=== PATIENT | female | born 1930 | race Caucasian/White ===

== ENCOUNTER 2016-09-20 08:45 | Inpatient (IN) | payer MEDICARE, OTHER ==
[~2016-09-20] VITALS: Ht 162.6 cm; Wt 62.2 kg
[~2016-09-20 08:45] MED LIST: ARICEPT10 MG PO; BENAZEPRIL HCL10 MG PO; HYDROCHLOROTHIA25 MG PO; K-TAB10 MEQ PO; LASIX20 MG PO; LOFIBRA134 MG PO; LOTREL 5/20 MG1 CAP PO; NAPROSYN500 MG PO; NORVASC5 MG PO; OCUVITE TABLET1 TA1 PO; OS-CAL 500+D TA1 TAB PO; PROTONIX40 MG PO; SEROQUEL25 MG PO; SYNTHROID100 MCG PO; TENORMIN25 MG PO; TENORMIN50 MG PO; ULTRAM50 MG PO; VITAMIN B-121000 MCG PO; VITAMIN D3400 UNI1 PO
[2016-09-20 09:50] LABS: APPEARANCE CLEAR (CLEAR); BILIRUBIN NEGATIVE (NEGATIVE); COLOR YELLOW (YELLOW); GLUCOSE NEGATIVE (NEGATIVE); KETONE NEGATIVE (NEGATIVE); LEUKOCYTE ESTERASE NEGATIVE (NEGATIVE); NITRITE NEGATIVE (NEGATIVE); PROTEIN NEGATIVE (NEGATIVE); UROBILINOGEN NORMAL (NORMAL)
[2016-09-20 09:51] LABS: ALBUMIN 3.3 g/dL (3.4-5.0); ANION GAP 7.4 mmol/L (8-16); BILIRUBIN - TOTAL 0.6 mg/dL (0.2-1.3); CALCIUM 9.4 mg/dL (8.5-10.1); CARBON DIOXIDE 30.9 mmol/L (21.0-32.0); POTASSIUM - SERUM 4.3 mmol/L (3.5-5.1); PROTEIN - SERUM 7.2 g/dL (6.4-8.2)
[2016-09-20 09:53] LABS: INR 1.05 (0.85-1.17); PROTIME 13.6 SECONDS (11.6-15.0)
[2016-09-20 10:19] LABS: BASOPHILS 0.2 % (0.0-2.0); EOSINOPHILS 0.9 % (0-7); HEMATOCRIT 38.7 % (36.0-48.0); HEMOGLOBIN 12.5 g/dL (12-16); IMMATURE GRANULOCYTES 0.5 % (0-5); MCH 33.7 pg (26.0-34.0); MCHC 32.3 g/dL (31.0-37.0); MCV 104.3 fL (80.0-100.0); MEAN PLATELET VOLUME 10.9 fL (7.4-10.4); MONOCYTES 6.6 % (2-11); NEUTROPHILS 71.8 % (40-80); PLATELET COUNT 158 10x3/uL (130-400); RBC 3.71 10x6/uL (4.00-5.40); RDW 12.7 % (11.5-14.5); WBC 5.8 10x3/uL (4.8-10.8)
--- NOTE | 2016-09-20 14:18 | NUR ---
PATIENT HAS BEENUP IN [facility] WITH PT. REHAB HAS ACCEPTED PATIENT. ORDER TO DC CVL. CVL DRESSING OFF AND SITE CLEANED WITH BETADINE. SUTURES X 3 REMOVED. CVL CATH PULLED WITH TIP INTACT. NO SIGNS OF INFECTION. PRESSURE HELD FOR 5 MINS. NO BLEEDING OR EDEMA. REPORT CALLED TO Kareem SOTELO RN.
[2016-09-20] MEDS ORDERED: CATAPRES0.1 MG PO (15:18)
[2016-09-20] MEDS ORDERED: FENOFIBRATE134 MG PO (15:19)
[2016-09-20] MEDS ORDERED: COLACE100 MG PO (15:19)
[2016-09-20] MEDS ORDERED: CENTRUM COMPLE1 EACH PO (15:20)
[2016-09-20] MEDS ORDERED: CLARITIN 10 MG10 MG PO (15:21)
[2016-09-20 15:23] VITALS: BP 175/77; BMI 23.9
[2016-09-20 15:25] VITALS: BP 175/77
--- NOTE | 2016-09-20 15:47 | NUR ---
ARRIVED FROM ER VIA STRETCHER. AWAKE BUT NOT ORIENTED TO PLACE. DAUGHTER @ BEDSIDE. PATIENT IDENIFIED FALL RISK.
--- NOTE | 2016-09-20 16:39 | NUR ---
Rehab Note- Prescreen order received. There is no H&P or notes noted at this time. Will follow the patient. Thank you for this referral! Elisha Enriquez RN Clinical Liaison, Rehab Care/[place]
--- NOTE | 2016-09-20 18:22 | NUR ---
RESUMED CARE OF PT, DAUGHTER AT BEDSIDE, BED ALARM ON, IV-LFA-SL,BED IS LOW, SRX2, WILL CONTINUE TO MONITOR
[2016-09-20 22:54] VITALS: BP 164/70
[2016-09-21 00:30] VITALS: BP 163/69
--- NOTE | 2016-09-21 01:31 | NUR ---
LYING IN BED, CALL LIGHT IN REACH. WILL CONTINUE WITH PLAN OF CARE.
[2016-09-21 05:23] VITALS: BP 180/77
[2016-09-21 08:00] VITALS: BP 203/94
--- NOTE | 2016-09-21 10:02 | NUR ---
Rehab Note- Awaiting PT note. Continue to follow the patient at this time. Thank you for this referral! Elisha Enriquez RN Clinical Liaison, Rehab Care/[place]
--- NOTE | 2016-09-21 11:33 | NUR ---
WOUND CARE CONSULT: NOTED BLANCHABLE REDNESS BILATERAL BUTTOCKS. LEFT LOWER ABD FOLD IS RED BUT DOESN'T APPEAR MOIST. NOTED CALLOUSES ON BILATERAL BALLS OF FEET. PT IS INCONTINENT OF BOWELS AND BLADDER SO RECOMMEND USING A MOISTURE BARRIER TO AIDE IN PROTECTING THE SKIN FROM MOISTURE. WILL CONTINUE TO MONITOR.
[2016-09-21 12:00] VITALS: BP 217/98
--- NOTE | 2016-09-21 13:30 | NUR ---
FOUND SALINE LOCK IN BED WITH PT. WILL LEAVE IV OUT, PT IS NOT ON IV MEDS.
[2016-09-21 14:06] VITALS: Ht 162.6 cm; Wt 62.2 kg
--- NOTE | 2016-09-21 15:10 | NUR ---
BP122/61 IN RT ARM. SITTING IN CHAIR WITH FAMILY IN THE ROOM. ALERT AND CONFUSED TO TIME AND PLACE.
[2016-09-21 16:00] VITALS: BP 85/40
--- NOTE | 2016-09-21 17:16 | NUR ---
Patient Name: JANETTE DE LA VEGA Admission Status: ER Accout number: [id number] Admission Date: 09-20-2016 : 1930 Admission Diagnosis: Attending: NARCISA Current LOS: 1 Anticipated DC Date: 09-21-2016 Planned Disposition: Nursing Home Facility Primary Insurance: MEDICARE A & B Discharge Planning Comments: * Is the patient Alert and Oriented? Yes 0 * How many steps to enter\exit or inside your home? 3 0 * PCP DR. CARPENTER 0 * [facility] [place] 0 * Preadmission Environment Home with Family 0 * ADLs Partial Dependent 0 * Partial ADLs (Assistance needed) Bathing Medication Management 0 * Equipment Cane Walker 0 * Other Equipment NO MEDICAL EQUIPMENT PROVIDER PREFERENCE 0 * List name and contact numbers for known caregivers / representatives who currently or will assist patient after discharge: HERMAN DE LA VEGA, DAUGHTER, 0 * Community resources currently utilized None 0 * Please name any agencies selected above. NONE 0 * Additional services required to return to the preadmission environment? Yes * Can the patient safely return to the preadmission environment? No 0 * Has this patient been hospitalized within the prior 30 days at any hospital? No 0 CM MET WITH PT IN ROOM TO DISCUSS DISCHARGE PLANNING AND NEEDS. PT REPORTS LIVING AT HOME DEPENDENT ON HER ADULT DAUGHTER. PT REPORTS HAVING HELP WITH BATHING AND MEDICATION MANAGEMENT. PT HAS A CANE AND WALKER WITH NO PROVIDER PREFERENCE. PT REPORTS HAVING A GIRL THAT COMES IN TO ASSIST SOMETIMES THAT HER DAUGHTER GETS TO HELP PT AT HOME. CM DISCUSSED AVAILABILITY OF HOME HEALTH, REHAB SERVICES AND MEDICAL EQUIPMENT. PT KNOWS SHE NEEDS REHAB, DOES NOT KNOW WHERE HER DAUGHTER HERMAN IS TRYING TO GET HER INTO FOR REHAB. PT PLANS TO RETURN HOME AFTER REHAB, CM CALLED HERMAN DE LA VEGA, AND [phone], THERE WAS NO ANSWER, CM LEFT MESSAGE ASKING FOR RETURN CALL. HERMAN DE LA VEGA ARRIVED TO HOSPITAL, PROVIDED POA PAPERWORK, COPY PLACED ON CHART. HERMAN REPORTS THAT HER MOTHER LIVES WITH HER AND SHE IS NOT ABLE TO TAKE CARE OF HER ANY LONGER AND WANTS TO PLACE HER MOTHER AT [facility]. HERMAN HAS ALREADY MET WITH TAMMY AT [place] AND THEY ARE EXPECTING A REFERRAL FROM THE HOSPITAL. CHOICE SIGNED, IMPORTANT MESSAGE FROM MEDICARE PROVIDED AND EXPLAINED. CM CALLED TAMMY AT [facility], , WHO ASKED IF PT COULD STAY IN THE HOSPITAL FOR 3 MIDNIGHT STAY TO ALLOW FOR REHAB SERVICES. CM ADVISED THAT PT IS READY FOR DISCHARGE NOW. TAMMY WILL EVALUATE PT FOR PLACEMENT AT [facility], BED STATUS TO BE DETERMINED. CAMRYN FAXED REFERRAL TO [place] AT [phone]. CAMRYN WAITING ADMISSION DETERMINATION FROM [facility]. Manager Of Finance: Truogn Mehta
[2016-09-21 21:18] VITALS: BP 133/87
[2016-09-22 01:12] VITALS: BP 142/76
[2016-09-22 05:01] VITALS: BP 141/58
--- NOTE | 2016-09-22 07:35 | NUR ---
0720-PATIENT IS RESTING WITH EYES CLOSED, RESP APPEAR EVEN AND NON LABORED. BOX ALARM IS IN USE. NO IV ACCESS IS SEEN. ON ROOM AIR. ON HEART MONITOR SHOWING SR, HR 52. WILL CONTINUE TO MONITOR.
[2016-09-22 08:00] VITALS: BP 166/68
[2016-09-22 12:00] VITALS: BP 123/47
--- NOTE | 2016-09-22 14:10 | NUR ---
Patient Name: JANETTE DE LA VEGA Encounter No: [id number] : 1930 Primary Insurance: MEDICARE A & B Anticipated DC Date: 09-21-2016 Planned Disposition: Assisted Facility External Planned Provider: [facility], MEDICARE REHAB BED DCP follow-up note: CM RECEIVED CALL FROM TAMMY AT [facility], ; TAMMY HAS EVALUATED PT FOR PENITENTIARY CARE PLACEMENT AT [facility], PT HAS TOO MANY ASSETS FOR MEDICAID AT THIS TIME. TAMMY WILL SCREEN PT FOR ADMISSION TO REHAB SERVICES, REQUESTED CLINICAL UPDATE. CM REQEUSTED TO HAVE PT ADMITTED OVER WEEKEND, TOMORROW IF POSSIBLE. TAMMY WILL COMPLETE SCREENING AND NOTIFY CM. CM FAXED UPDATE TO [facility] AT [phone]. CM WAITING ADMISSION DETERMINATION FROM [facility]. Monumental Stonemason: Truong Mehta
--- NOTE | 2016-09-22 14:13 | NUR ---
Nutrition follow-up: Diet: Mechanical soft PO intake ~25% of meals +BM Labs reviewed RDN will order Ensure with meals. Following.
--- NOTE | 2016-09-22 15:31 | NUR ---
Reviewed patient's chart for IRF. She certainly has the need for therapy, but does not have a medical necessity that requires a 24/7 RN and an MD at least 3 times a week. Discussed with the CM Shellie Platt who says she is going to [facility]. Gila Dent RN Clinical Liaison, Rehab
[2016-09-22 16:00] VITALS: BP 146/75
--- NOTE | 2016-09-22 16:13 | NUR ---
Patient Name: JANETTE DE LA VEGA Encounter No: [id number] : 1930 Primary Insurance: MEDICARE A & B Anticipated DC Date: 09-23-2016 Planned Disposition: Shelter Facility External Planned Provider: [facility], MEDICARE REHAB BED DCP follow-up note: CM CALLED TAMMY AT [facility], ; TAMMY HAS COMPLETED SCREENING FOR ADMISSION TO REHAB, THEY WILL ACCEPT PT TOMORROW. CM SPOKE TO PT'S DAUGHTER AND SON AT [facility], BOTH IN AGREEMENT WITH REHAB PLACEMENT TOMORROW AT [facility], FAMILY TO TRANSPORT. ESTRELLA CARBAJAL NOTIFIED. FOR DISCHARGE, NURSE REPORT TO BE CALLED TO [facility], ; FAX DISCHARGE INFORMATION TO [facility] AT [phone]. PT'S DAUGHTER AND SON TO PROVIDE TRANSPORTATION FOR PT TO REHAB. Apartment House Manager: Truong Mehta
--- NOTE | 2016-09-22 18:12 | NUR ---
BOX ALARM IS STILL IN USE. CALL LIGHT IN USE. PATIENT WILL USE HER CALL LIGHT AT TIMES, CONFUSED. WILL CONTINUE TO MONITOR AND ASSESS OFTEN.
[2016-09-22 22:07] VITALS: BP 151/72
--- NOTE | 2016-09-22 22:35 | NUR ---
INITIAL ROUNDS COMPLETED AT 1915 RHS. PT DENIED ANY DISCOMFORT. PT HAD TROWN ENSURE ALL OVER BED, GUIDO AND FLOOR AND IS INCONTINENT OF URINE AT 2005 HRS. PT CLEANED AND BED LINENS CHANGED. ASSESSMENT COMPLETED AT 2014 HRS. SR PER CM HR 74. NO IV ASSESS. PT ORIENTED TO PERSON ONLY. LUNGS DIMINISHED INBASES BILAT. BRUISES NOTED TO BILAT ARMS. BOX ALRM IN USE. PM MEDS GIVEN. PT CURENTLY YELLING OUT. WILL CONTINUE TO MONITOR. SR UP X3, CALL LIGHT WITHIN REACH AND BOX ALARM ON.
--- NOTE | 2016-09-23 00:54 | NUR ---
PT ATTEMPTING TO CRAWL OUT OF BED. REPOSITIONED INBED FOR COMFORT. SR UP X3, CALL LIGHT WITHIN REACH, BOX ALRM ON AND DOOR OPEN.
[2016-09-23 01:00] VITALS: BP 161/62
--- NOTE | 2016-09-23 02:21 | NUR ---
PT RESTING WITH EYES CLOSED. RESP EVEN AND REGULAR. SR UP X2, CALL LIGHT WITHIN REACH.
--- NOTE | 2016-09-23 04:02 | NUR ---
BED BATH DONE; BED LINENS CHANGED. PT ASSISTED TO BSC. VOIDED 60CC OF URINE. ASSIST X2 BACK TO BED. WILL CONTINUE TO MONITOR. S RUP X3, CALL LIGHT WITHIN REACH AND BED ALARM ON.
[2016-09-23 04:31] VITALS: BP 131/66
--- NOTE | 2016-09-23 06:36 | NUR ---
VSS THROUGHOUT NGITH. SR PER CM. PT DENIED ANY DISCOMFORT. NEEDS MET; WILL CONTINUE TO MONITOR.
--- NOTE | 2016-09-23 07:25 | NUR ---
0645-TECH FROM LAST NIGHT TO ASSIST PATIENT TO BSC TO VOID. BOX ALARM IS IN USE ALONG WITH CALL LIGHT. PATIENT IS CONFUSED, HX OF DEMENTIA. NO IV ACCESS SEEN. ON HEART MONITOR SHOWING SR, HR 65. PATIENT DID HAVE SOME INCONT. EPISODES ON LAST SHIFT. BRUISING SEEN TO BILATERAL ARMS. WILL CONTINUE TO MONITOR.
[2016-09-23 08:00] VITALS: BP 155/68
[2016-09-23 12:00] VITALS: BP 111/50
--- NOTE | 2016-09-23 14:39 | NUR ---
REPORT CALLED TO SHO MENENDEZ AT [facility].
--- NOTE | 2016-09-23 15:01 | NUR ---
VERBAL AND WRITTEN DISCHARGE INSTRUCTIONS GIVEN TO PATIENT AND DAUGHTER. DAUGHTER TO SIGN PAPERWORK. WILL DISCHARGE TO [facility] VIA WHEELCHAIR.
--- NOTE | 2016-10-30 12:39 | DS ---
PATIENT:JANETTE DE LA VEGA :[birth year] MEDICAL RECORD: [id number] DISCHARGE SUMMARY ADMISSION DATE: 09/20/16 DISCHARGE DATE: 09/23/16 ADMISSION DATE: 09/20/2016 DISCHARGE DATE: 09/23/2016 DISCHARGE DIAGNOSES: 1. Fall. 2. Gait instability. 3. Chronic dementia. 4. Hypertension. 5. Mild spinal canal stenosis. DIAGNOSTIC STUDIES OR TESTS: 1. Chest x-ray which showed no acute findings. 2. X-ray of the pelvis, which showed no acute abnormalities in the pelvis. 3. CT of the head, which shows generalized cerebral atrophy. 4. CT of the cervical spine, which showed no acute bony abnormalities in the cervical spine with mild degenerative changes in the mid to lower cervical spine contributing to a mild spinal canal stenosis. HOSPITAL COURSE: The full H&P is listed elsewhere in the chart for this 86-year-old female patient, who was admitted to the inpatient setting after acute fall. States she underwent several imaging studies, see the above. The patient was evaluated and sent to the [place] rehabilitation. See med rec. TRANSINT:[id number] Voice Confirmation ID: [id number] DOCUMENT ID: [id number] Dictated By: MU PISANO I have interviewed/examined the above patient and agree with these documented findings. PRAVIN MANJARREZ MD at 1233 at 1238 CC: [id number] DICTATION DATE: 10/26/16 0821 SERVICE SUPERINTENDENT: 10/26/16 2304 DIS IN 09/23/16 [id number] [place] [address]
== END 2016-09-23 15:14 | DRG 914 ==
LOC: D.ER 08:45 → OBSVTIME 13:47 → D.M2 13:47 → D.SDCHOLD 13:47 → D.M2 13:48 → D.ER 14:02 → D.M2 09-21 14:40 → D.SDCHOLD 09-21 14:40 → D.M2 09-21 14:44
PROVIDERS: Emergency Medicine; ADMIT Family Medicine
DX: S09.90XA Unspecified injury of head, initial encounter (principal); I10 Essential (primary) hypertension; R26.81 Unsteadiness on feet; G62.9 Polyneuropathy, unspecified; W19.XXXA Unspecified fall, initial encounter; S50.02XA Contusion of left elbow, initial encounter; S60.222A Contusion of left hand, initial encounter; S70.11XA Contusion of right thigh, initial encounter; F03.90 Unspecified dementia, unspecified severity, without behavioral disturbance, psychotic disturbance, mood disturbance, and anxiety; S16.1XXA Strain of muscle, fascia and tendon at neck level, initial encounter

== ENCOUNTER 2016-11-14 11:27 | Inpatient (IN) | payer MEDICARE, OTHER ==
[~2016-11-14] VITALS: Ht 162.6 cm; Wt 77.0 kg
[~2016-11-14 11:27] MED LIST changes: +CATAPRES0.1 MG PO; +CENTRUM COMPLE1 EACH PO; +CLARITIN 10 MG10 MG PO; +COLACE100 MG PO; +FENOFIBRATE134 MG PO
[2016-11-14 12:47] LABS: BASOPHILS 0.2 % (0.0-2.0); EOSINOPHILS 0.2 % (0-7); HEMOGLOBIN 12.3 g/dL (12-16); IMMATURE GRANULOCYTES 0.2 % (0-5); LYMPHOCYTES 21.6 % (15-50); MCH 32.7 pg (26.0-34.0); MCHC 32.4 g/dL (31.0-37.0); MCV 101.1 fL (80.0-100.0); MEAN PLATELET VOLUME 10.6 fL (7.4-10.4); MONOCYTES 13.7 % (2-11); NEUTROPHILS 64.1 % (40-80); PLATELET COUNT 140 10x3/uL (130-400); RBC 3.76 10x6/uL (4.00-5.40); RDW 13.4 % (11.5-14.5); WBC 4.1 10x3/uL (4.8-10.8)
[2016-11-14 12:58] LABS: APTT 31.4 SECONDS (22.8-39.4); INR 1.14 (0.85-1.17); PROTIME 14.5 SECONDS (11.6-15.0)
[2016-11-14 13:12] LABS: ALBUMIN 2.6 g/dL (3.4-5.0); ALKALINE PHOSPHATASE 68 U/L (46-116); ALT (SGPT) 38 U/L (10-68); BILIRUBIN - TOTAL 0.49 mg/dL (0.2-1.3); CALC OSMOLALITY 285 mosm/kg (275-300); CALCIUM 8.3 mg/dL (8.5-10.1); CARBON DIOXIDE 27.1 mmol/L (21.0-32.0); CHLORIDE - SERUM 105 mmol/L (98-107); CREATININE - SERUM 1.4 mg/dL (0.6-1.3); GLUCOSE 109 mg/dL (74-106); POTASSIUM - SERUM 4.9 mmol/L (3.5-5.1); PROTEIN - SERUM 6.3 g/dL (6.4-8.2); SODIUM 140 mmol/L (136-145); UREA NITROGEN 29 mg/dL (7-18); eGFR NON AFRICAN AMERICAN 38 mL/min (90-120)
[2016-11-14 13:32] LABS: CREATINE KINASE 250 UL (21-215)
[2016-11-14 13:34] LABS: CKMB 0.6 U/L (0.0-3.6)
[2016-11-14 13:55] LABS: APPEARANCE CLEAR (CLEAR); BILIRUBIN NEGATIVE (NEGATIVE); COLOR YELLOW (YELLOW); GLUCOSE NEGATIVE (NEGATIVE); KETONE NEGATIVE (NEGATIVE); LEUKOCYTE ESTERASE NEGATIVE (NEGATIVE); NITRITE NEGATIVE (NEGATIVE); PROTEIN NEGATIVE (NEGATIVE); SPECIFIC GRAVITY 1.015 (1.005-1.020); UROBILINOGEN NORMAL (NORMAL)
--- NOTE | 2016-11-14 22:40 | NUR ---
REC'D PT FROM ER [facility]IA [employer]. PT OPENS EYES TO VERBAL STIMULI. SIMPLE YES OR NO QUESTIONS. PT IS ACCOMPANIED BY HER TWO DAUGHTERS. INCONT OF STOOL. GALINDO PATENT TO BSD WITH DARK YELLOW URINE IN BAG. WINCH OPERATOR'S GAVE PT A BED BATH AND PROVIDED GALINDO CARE. IV TO PT'S RT HAND PATENT, WITHOUT S/S OF INFILTRATION. TELEMETRY PUT ON PT. SHE IS RUNNING SR AT 62 ON THE MONITOR. PT'S DAUGHTER HERMAN DE LA VEGA REQUESTED PT BE A DNR. NURSE HOME DID SEND A COPY OF DNR ORDER. DNR ORDER PUT ON CHART FOR DR. QUIROZ TO SIGN, THOUGH ORDER WAS ALREADY PUT IN COMPUTER BY ER VS- T-97.9,P-64,R-16,B/P-142/61, O2 99% ON RA. PT APPEARS COMFORTABLE. NO DISTRESS NOTED. CALL LIGHT PLACED WITH IN REACH. BED ALARM ON. WILL CONT. TO MONITOR.
[2016-11-14] MEDS ORDERED: LUMIGAN 0.01%2.5 ML EACH EYE (23:32)
[2016-11-14] MEDS ORDERED: ACETAMINOPHEN500 M1 PO (23:43)
[2016-11-14 23:58] VITALS: BP 142/61; BMI 21.2
[2016-11-15] VITALS: BP 142/61
--- NOTE | 2016-11-15 01:27 | NUR ---
PT SLEEPING. NO DISTRESS NOTED. RESP UNLABORED. PT IS A MOUTH BREATHER. IS SNORING SLIGHTLY. APPERARS COMFORTABLE. DOOR TO ROOM REMAINS OPEN. CALL LIGHT WITH IN REACH. BED ALARM ON. WILL CONT. TO MONITOR.
--- NOTE | 2016-11-15 03:50 | NUR ---
PT SLEEPING. WEARING O2 VIA NC. PT IS A MOUTH BREATHER. NURSE TOOK SCD'S IN ROOM. WHEN NURSE ATTEMPTED TO LIFT BLANKETS TO APPLY SCD'S PT STARTED MOVING LEGS. NURSE EXPLAINED SCD'S AND THE USE OF THEM. PT SHAKING HER HEAD NO. PT MAY BE DISORIENTED. WILL ATTEMPT TO PUT SCD'S ON PT AT ANOTHER TIME. CALL LIGHT WITH IN REACH. BED ALARM ON. WILL CONT. TO MONITOR.
[2016-11-15 04:00] VITALS: BP 147/64
--- NOTE | 2016-11-15 05:09 | NUR ---
LAB HERE TO DRAW PT'S BLOOD. NURSE REPOSITIONED PT TO HER LEFT SIDE. PT SEEMED TO NOT LIKE BEING MOVED. PT MUMMBLED WHAT SEEMED TO BE PROTESTS WHILE NURSE WAS TURNING PT. BED ALARM ON. CALL LIGHT WITH IN REACH. DOOR TO ROOM OPEN. IV TO RIGHT HAND PATENT. NO S/S OF INFILTRATION.
[2016-11-15 05:34] LABS: BASOPHILS 0 % (0.0-2.0); EOSINOPHILS 0 % (0-7); HEMATOCRIT 34.3 % (36.0-48.0); IMMATURE GRANULOCYTES 0.3 % (0-5); LYMPHOCYTES 19.7 % (15-50); MCH 32.6 pg (26.0-34.0); MCHC 32.1 g/dL (31.0-37.0); MCV 101.8 fL (80.0-100.0); MEAN PLATELET VOLUME 10.7 fL (7.4-10.4); MONOCYTES 11.7 % (2-11); NEUTROPHILS 68.3 % (40-80); PLATELET COUNT 126 10x3/uL (130-400); RBC 3.37 10x6/uL (4.00-5.40); RDW 13.5 % (11.5-14.5); WBC 3.8 10x3/uL (4.8-10.8)
[2016-11-15 06:19] LABS: CALCIUM 7.9 mg/dL (8.5-10.1); CARBON DIOXIDE 24.3 mmol/L (21.0-32.0); CREATININE - SERUM 1.3 mg/dL (0.6-1.3)
[2016-11-15 06:20] LABS: ANION GAP 12.6 mmol/L (8-16); POTASSIUM - SERUM 3.9 mmol/L (3.5-5.1); TROPONIN-I 0.111 ng/mL (0.000-0.060)
[2016-11-15 08:00] VITALS: BP 131/62
--- NOTE | 2016-11-15 08:24 | NUR ---
0715- AM ROUNDING- RECEIVED REPORT FROM COURIER NURSE ALEKSANDER. PT CURRENTLY SITTING UP IN BED RECEIVING A BREATHING TX. ON MONITOR SHOWING SR, HR 63. DNR. 0N 02 AT 2L VIA NC. IV SEEN TO RIGHT HAND WITH D5 NS RUNNING AT 100CC/HR. GALINDO CATHETER SEEN WITH YELLOW URINE. SCDS ON. PER REPORT PT HAS HX OF DEMENTIA. BED ALARM IS ON AND SIDE RAILS ARE UP X2. NO NEED AT CURRENT TIME. DHIRAJ ROSARIO STATED SHE WILL ASSIST PT WITH BREAKFAST. WILL CONTINUE TO MONITOR AND CONTINUE WITH PLAN OF CARE.
[2016-11-15 12:00] VITALS: BP 144/63
--- NOTE | 2016-11-15 14:04 | NUR ---
ER CM Patient resides in the [facility] as a long-term client. PCP: Dr Arriaga. Medication per [facility]. Has resided at the [facility] since September 23. Patient is Total Dependent in care and w/c bound per daughter report. Emergency Contact: Lindsey Sy: (h) [phone], (c) [phone]. Plan is to return to [facility] upon discharge. Patient has not been hospitalized within the past 30 days. Toña Cabrera RN CM
[2016-11-15 17:52] VITALS: BP 150/70
--- NOTE | 2016-11-15 19:25 | NUR ---
PT SITTING UP IN BED WITH EYES OPEN RESTING. NO NEED AT CURRENT TIME. WILL CONTINUE TO MONITOR.
[2016-11-15 20:52] VITALS: BP 168/75
--- NOTE | 2016-11-16 00:03 | NUR ---
PT LYING IN BED, EYES CLOSED, RESPIRATIONS EVEN AND UNLABORED. CONTINUE TO MONITOR CLOSELY. BED LOW, CALL LIGHT IN REACH, SIDE RAILS X 2, HOB 30 DEGREES, ALARM ON.
[2016-11-16 01:33] VITALS: BP 150/73
[2016-11-16 06:04] VITALS: BP 178/77
--- NOTE | 2016-11-16 06:15 | NUR ---
PT SITTING UP IN BED, AWAKE, ALERT, DENIES ANY NEEDS. CONTINUE TO MONITOR.
[2016-11-16 07:47] VITALS: BP 155/65
--- NOTE | 2016-11-16 08:11 | NUR ---
SITTING UP ON SIDE OF BED EATING BREAKFAST. NO COMPLAINTS. WILL CONTINUE TO MONITOR
[2016-11-16 11:31] VITALS: BP 155/80
[2016-11-16 14:41] VITALS: Ht 162.6 cm; Wt 77.0 kg
[2016-11-16 15:35] VITALS: BP 118/60
--- NOTE | 2016-11-16 19:35 | NUR ---
PT SEEN TODAY FOR DIET TOLERANCE ANALYSIS. NURSING REPORTED PT WITH DECREASED APPETITE; HOWEVER, TOLERATES DIET W/O DIFFICULTY; CLEARED PT FOR PARTICIPATION. PT AWAKE, ALERT, AND LONG-SITTING IN BED UPON CLINICIAN ARRIVAL. PT DAUGHTER AT BEDSIDE. PT DENIED PAIN; BREATHING ROOM AIR. PT PRESENTED WITH GENERALIZED WEAKNESS, BREATHY VOCAL QUALITY, CONFUSION, AND INTERMITTENT COUGH AT BASELINE. PT GIVEN TRIALS OF MECHANICAL SOFT AND THIN LIQUIDS WITH NO OVERT S/SX OF ASPIRATION. PT DID HAVE SIGNIFICANTLY PROLONGED MASTICATION AND STATED SHE SOMETIMES GETS FATIGUED ACROSS A MEAL. PT ALSO HAD LEFT LEANING POSTURE WHICH RESULTED IN RESIDUE IN LEFT BUCCAL CAVITY; CLINICIAN RECOMMENDED FINGER/LINGUAL SWEEP TO ENSURE ALL BUCCAL RESIDUE IS CLEARED AFTER EACH MEAL. CLINICIAN RECOMMENDS PT CONTINUE CURRENT DIET WITH GENERAL SWALLOW PRECAUTIONS. CLINCIAN REVIEWED SWALLOW PRECAUTIONS WITH PT AND DAUGHTER; BOTH VERBALIZED AGREEMENT AND UNDERSTANDING. NURSING INFORMED. SHOULD INCLUDE
--- NOTE | 2016-11-16 19:59 | NUR ---
RESTING IN BED. SR PER TELEMETRY. PIV TO RIGHT HAND WITH D5NS @100ML/HR. GALINDO TO BEDSIDE DRAIN BAG. NONLABORED RESPIRATIONS ON ROOM AIR. O2 SAT 97%. SEE SHIFT ASSESSMENT. CALL LIGHT IN REACH. BED ALARM ACTIVATED.
[2016-11-16 20:00] VITALS: BP 155/78
--- NOTE | 2016-11-16 21:25 | NUR ---
MEDS CRUSHED AND GIVEN IN APPLESAUCE. EYEDROPS TO EACH EYE. HOB UP AFTER MEDS. 1ST STEP AIR BED. SCDS ON AND ACTIVE. BED ALARM ACTIVATED. CALL LIGHT IN REACH.
[2016-11-17] VITALS: BP 176/89
[2016-11-17 04:00] VITALS: BP 160/80
--- NOTE | 2016-11-17 07:39 | NUR ---
PT SITTING UP IN BED DENIES NEEDS. GIRLFRIEND ASLEEP IN CHAIR AT BEDSIDE WILL CONT TO MONITOR
--- NOTE | 2016-11-17 07:40 | NUR ---
PT SITTING UP IN BED DENIES NEEDS WILL CONT TO MONITOR
[2016-11-17 08:56] VITALS: BP 184/84
[2016-11-17 13:34] VITALS: BP 156/76
--- NOTE | 2016-11-17 14:18 | NUR ---
PT SITTING UP IN BED SLEEPING. FAMILY MEMBER AT BEDSIDE NO S/S DISTRESS NOTED. WILL CONT TO MONITOR
--- NOTE | 2016-11-17 15:07 | NUR ---
PT REQUESTING IT DATA ARCHITECT FROM [facility]. CALLED [facility] AND REQUESTED THEM TO COME VISIT HER.
[2016-11-17 18:15] VITALS: BP 167/80
--- NOTE | 2016-11-17 18:23 | NUR ---
PT PIV INFILTRATED. DC WITH CATH INTACT. TRIED TO RESITE X2 NO SUCCESS. BRYAN TRYING NOW
--- NOTE | 2016-11-17 18:27 | NUR ---
BRYAN SITED PT TO R FA 22G X1 STICK
[2016-11-17 22:19] VITALS: BP 151/72
[2016-11-18 01:26] VITALS: BP 221/87
--- NOTE | 2016-11-18 03:03 | NUR ---
LAST BP ELEVATED 221/80, PT ASYMPTOMATIC. SR PER TELEMETRY. DAUGHTER AT BEDSIDE. PT WITH EYES CLOSED AND LOOKS MORE COMFORTABLE THAN SHE USUALLY DOES. WILL MONITOR.
[2016-11-18 04:29] VITALS: BP 201/91
--- NOTE | 2016-11-18 07:00 | NUR ---
RECEIVED REPORT. ASSUMED CARE OF PATIENT. CALL LIGHT WITHIN REACH. PATIENTS DAUGHTER AT BEDSIDE. 1ST STEP OVERLAY PATENT. IV FLUIDS INFUSING ORDERED. DENIES NEEDS. NO DISTRESS. RESP EVEN AND UNLABORED.
[2016-11-18 09:04] VITALS: BP 182/88
[2016-11-18 09:56] LABS: HEMATOCRIT 32.1 % (36.0-48.0); HEMOGLOBIN 10.6 g/dL (12-16); MCH 32.4 pg (26.0-34.0); MCV 98.2 fL (80.0-100.0); MEAN PLATELET VOLUME 10.4 fL (7.4-10.4); PLATELET COUNT 101 10x3/uL (130-400); RBC 3.27 10x6/uL (4.00-5.40); RDW 13.3 % (11.5-14.5); WBC 2.1 10x3/uL (4.8-10.8)
[2016-11-18 10:07] LABS: CALC OSMOLALITY 281 mosm/kg (275-300); CALCIUM 7.7 mg/dL (8.5-10.1); CARBON DIOXIDE 22.2 mmol/L (21.0-32.0); CHLORIDE - SERUM 111 mmol/L (98-107); CREATININE - SERUM 0.7 mg/dL (0.6-1.3); GLUCOSE 106 mg/dL (74-106); POTASSIUM - SERUM 3.3 mmol/L (3.5-5.1); SODIUM 143 mmol/L (136-145); UREA NITROGEN 5 mg/dL (7-18); eGFR NON AFRICAN AMERICAN 83 mL/min (90-120)
[2016-11-18 11:48] LABS: PLATELET ESTIMATE DECREASED
[2016-11-18 11:52] LABS: IMMATURE GRANULOCYTES 0.5 % (0-5)
[2016-11-18 12:23] VITALS: BP 175/76
--- NOTE | 2016-11-18 13:54 | NUR ---
PT WORKING WITH PATIENT TO SIT ON SIDE OF THE BED. NO DISTRESS. CALL LIGHT WITHIN REACH. NO DISTRESS.
[2016-11-18 16:19] VITALS: BP 182/84
--- NOTE | 2016-11-18 16:34 | NUR ---
TURNED AND REPOSITIONED. FAMILY REMAINS AT BEDSIDE. NO DISTRESS. CALL LIGHT WITHIN REACH.
--- NOTE | 2016-11-18 19:03 | NUR ---
LAYING IN BED, EYES CLOSED, AWAKENS BRIEFLY TO NAME, SKIN WARM AND DRY, RESP UNLABORED, IV PATENT TO RIGHT WRIST, GALINDO DRAINING TO GRAVITY, NO DISTRESS NOTED
[2016-11-18 20:59] VITALS: BP 170/89
--- NOTE | 2016-11-18 23:26 | NUR ---
MEDICAL SONOGRAPHER AT BEDSIDE FOR VS. NEEDS ADDRESSED, CALL LIGHT IN REACH. WILL CONT TO MONITOR.
[2016-11-19 00:12] VITALS: BP 165/80
[2016-11-19 04:00] VITALS: BP 163/79
--- NOTE | 2016-11-19 07:56 | NUR ---
PT. AOX4 RESP EVEN AND NONLABORED IV TO RIGHT WRIST PATENT AND INTACT PT DENIES NEEDS AT THIS TIME BED AT LOWEST SETTING CALL LIGHT WITHIN REACH WILL CONTINUE TO MONITOR
[2016-11-19 08:40] VITALS: BP 196/87
[2016-11-19 13:55] VITALS: BP 168/88
[2016-11-19 15:58] VITALS: BP 184/95
--- NOTE | 2016-11-19 19:51 | NUR ---
PT RESTING ON 1ST STEP AIR MATTRESS. DROWSY, ROUSES UP TO VERBAL STIMULI. SR PER TELEMETRY. GALINDO PATENT TO BEDSIDE DRAIN BAG. NONLABORED RESPIRATIONS. PIV TO RIGHT WRIST. CPOC.
[2016-11-19 20:15] VITALS: BP 166/84
--- NOTE | 2016-11-19 21:29 | NUR ---
PT RESTING IN BED. MORE ALERT. SOFT VOICE. TELLS NURSE SHE IS FEELING BETTER. HOLDING HEAD STRAIGHT, NO LONGER LEANING TO THE SIDE. HS MEDS CRUSHED AND GIVEN IN APPLESAUCE, PLUS PT REQUESTED TO EAT THE REMAINING APPLESAUCE AND WANTED SOME APPLE JUICE WELL THE WATER SHE WAS DRINKING.
[2016-11-20 02:31] VITALS: BP 193/86
[2016-11-20 04:45] VITALS: BP 190/82
[2016-11-20 05:47] LABS: BASOPHILS 0 % (0.0-2.0); EOSINOPHILS 2.2 % (0-7); HEMATOCRIT 31.4 % (36.0-48.0); HEMOGLOBIN 10.3 g/dL (12-16); IMMATURE GRANULOCYTES 0.4 % (0-5); LYMPHOCYTES 24.6 % (15-50); MCHC 32.8 g/dL (31.0-37.0); MCV 97.5 fL (80.0-100.0); MONOCYTES 9.9 % (2-11); NEUTROPHILS 62.9 % (40-80); PLATELET COUNT 96 10x3/uL (130-400); RBC 3.22 10x6/uL (4.00-5.40); RDW 13.2 % (11.5-14.5)
[2016-11-20 05:59] LABS: WBC 2.7 10x3/uL (4.8-10.8)
[2016-11-20 06:01] LABS: ANION GAP 11.5 mmol/L (8-16); CALCIUM 7.8 mg/dL (8.5-10.1); CREATININE - SERUM 0.8 mg/dL (0.6-1.3); POTASSIUM - SERUM 3.5 mmol/L (3.5-5.1)
[2016-11-20 07:58] VITALS: BP 170/74
[2016-11-20] MEDS ORDERED: Levaquin PO (10:56)
[2016-11-20] MEDS ORDERED: IPRAT-ALBUT 0.5-3 ML INH (10:57)
[2016-11-20] MEDS ORDERED: METOPROLOL TART50 MG PO (10:58)
[2016-11-20] MEDS ORDERED: FLORAJEN3 CAPS460 MG PO (10:59)
[2016-11-20] MEDS ORDERED: ASPIRIN81 MG PO (10:59)
[2016-11-20 11:48] VITALS: BP 182/84
--- NOTE | 2016-11-20 13:17 | NUR ---
Patient Name: JANETTE DE LA VEGA Encounter No: [id number] : 1930 Primary Insurance: MEDICARE A & B Anticipated DC Date: 11-20-2016 Planned Disposition: Nursing Facility JOHNY Cert External Planned Provider: [facility], MEDICARE REHAB BED DCP follow-up note: CM RECEIVED DISCHARGE ORDER, SPOKE TO PT AND DAUGHTER IN ROOM, BOTH IN AGREEMENT WITH DISCHARGE BACK TO [facility] TODAY. PT'S DAUGHTER REPORTS THE DOCTOR TOLD HER THAT PT WOULD BE GOING BY AMBULANCE. IMPORTANT MESSAGE FROM MEDICARE PROVIDED AND EXPLAINED. CM CALLED AND SPOKE TO PATRICE AT [place], PT WILL RETURN TO A SKILLED REHAB BED. CM FAXED DISCHARGE INFORMATION TO [facility] AT [phone]. NURSE REPORT TO BE CALLED TO [facility], [facility] NURSE, . PT TO TRANSPORT VIA AMBULANCE. Truong Mehta, CASE MANAGEMENT
--- NOTE | 2016-11-20 15:46 | NUR ---
ALERT. RESTING IN BED. DISCHARGE INSTRUCTIONS GIVEN TO PATIENT AND DAUGHTER. [facility] CALLED FOR TRANSPORT TO [facility]. REPORT CALLED TO SUZETTE HERNANDEZ AT [facility]. DC RT WRIST IV TIP INTACT. WAINTING FOR AMBULANCE TO ARRIVE. CONTINUE PLAN OF CARE AND SAFETY PRECAUTIONS.
[2016-11-20 16:40] VITALS: BP 184/81
--- NOTE | 2016-11-20 17:06 | NUR ---
EMS ARRIVE FOR TRANSPORTATION. TRANSFER FROM BED TO STRETCHER. DC PAPERS FOR [facility] GIVEN TO EMT.
== END 2016-11-20 17:07 | DRG 193 ==
LOC: D.ER 11:27 → D.M2 14:11
PROVIDERS: Emergency Medicine; ADMIT Family Medicine
DX: J18.9 Pneumonia, unspecified organism (principal); I21.4 Non-ST elevation (NSTEMI) myocardial infarction; N17.9 Acute kidney failure, unspecified; I24.8 Other forms of acute ischemic heart disease; I10 Essential (primary) hypertension; F03.90 Unspecified dementia, unspecified severity, without behavioral disturbance, psychotic disturbance, mood disturbance, and anxiety; E03.9 Hypothyroidism, unspecified; I73.9 Peripheral vascular disease, unspecified; R26.9 Unspecified abnormalities of gait and mobility; H40.9 Unspecified glaucoma; R13.10 Dysphagia, unspecified; D64.9 Anemia, unspecified; G62.9 Polyneuropathy, unspecified; Z66 Do not resuscitate

== ENCOUNTER 2016-12-17 08:31 | Inpatient (IN) | payer MEDICARE, OTHER ==
[~2016-12-17] VITALS: Ht 162.6 cm; Wt 59.9 kg
--- NOTE | ~2016-12-17 | CN ---
PATIENT NAME:JANETTE SY MEDICAL RECORD: [id number] : [birth year] LOCATION:[facility].2135 ADMIT DATE: 12/17/16 ACCOUNT: [id number] CONSULTING PHYSICIAN: GINGER OCHOA MD REFERRING PHYSICIAN: ADRIANNA QUIROZ MD DATE OF CONSULTATION: 12/17/2016 CONSULT REQUESTING PHYSICIAN: Cari Graff MD. REASON FOR CONSULTATION: Pneumonia and chest pain. HISTORY OF PRESENT ILLNESS: Ms. Sy is an 86-year-old female who has a history of dementia. The history was taken by talking to the patient's daughter. According to the daughter, she had pneumonia in the long term. She was treated with antibiotic, but she was not getting any better. Today, she was complaining of chest pain, which was generalized. There is no radiation to the arm and to the jaw. There was no associated nausea and vomiting. The patient was brought into the ER. On evaluation, she was found she has worsening pneumonia and infiltrate. REVIEW OF SYSTEMS: Mainly in the history of present illness. PAST MEDICAL HISTORY: 1. Dementia. 2. History of pneumonia. 3. Hypertension. 4. Peripheral vascular disease. 5. History of neuropathy. 6. History of skin cancer, removed 4 years ago. 7. Recent pneumonia a month ago. PAST SURGICAL HISTORY: 1. Hysterectomy. 2. . 3. Breast biopsy. 4. Leg vein stripping. ALLERGIES: SHE IS ALLERGIC TO CODEINE. MEDICATIONS: On [employer] was reviewed. PERSONAL AND SOCIAL HISTORY: The patient is a long term resident. She is a nonsmoker, nondrinker. FAMILY HISTORY: Noncontributory. PHYSICAL EXAMINATION: GENERAL: Now, the patient is lying comfortably. She is not in acute distress. VITAL SIGNS: Blood pressure 142/74, pulse is 86, respiration is 16, temperature 97.9, SpO2 97% on 2 liters nasal cannula. HEENT: Conjunctivae pink, sclerae nonicteric. NECK: Supple. No JVD. CHEST: Excursion is minimal on both sides. There are bilateral crackles. No wheezing. HEART: Rhythm regular, normal sound, no murmur. CONSULT REPORT [id number] JANETTE SY ABDOMEN: Soft. Bowel sounds present. No hepatosplenomegaly. RECTAL: Deferred. EXTREMITIES: No cyanosis, no clubbing, no pedal edema. SKIN: Warm, normal turgor. CENTRAL NERVOUS SYSTEM: The patient is awake and alert, but she is a bit confused. There are no obvious cranial nerve abnormality. The gait was not tested. IMAGING: Chest radiograph bilateral interstitial infiltrate, possible pleural effusion. OTHER LABORATORY DATA: CBC: The WBC 5.5, hemoglobin is 11.9, hematocrit 36.2, platelet count 129. Chemistry: Sodium 142, potassium 2.9, BUN is 13, creatinine is 1. IMPRESSION: 1. Acute hypoxic respiratory failure. 2. Pneumonia, bilateral, most likely hospital-acquired pneumonia being the patient a long term resident as well as recent hospitalization. 3. Chest pain, probably pleuritic and musculoskeletal in origin, within normal cardiac enzymes. 4. Pulmonary edema. 5. Congestive heart failure with a systolic dysfunction. The BNP is 4000. 6. Dysphagia, on pureed, thick diet. 7. Dementia. 8. Anemia. 9. Hypokalemia. RECOMMENDATION: 1. Start her on Lasix. 2. Vancomycin, Levaquin and cefepime IV, supplemental oxygen. 3. Followup the labs and CT scan of the chest. 4. Electrolytes protocol. Dr. Graff, once again thank you for involving me in the care of Ms. Sy. TRANSINT:[id number] Voice Confirmation ID: [id number] DOCUMENT ID: [id number] GINGER OCHOA MD CC: CARI GRAFF MD [id number] DICTATION DATE: 12/17/161728 TRUCK SERVICE TECHNICIAN: 12/17/16 2342 [id number] [place] [address]
[~2016-12-17 08:31] MED LIST changes: +ACETAMINOPHEN500 M1 PO; +ASPIRIN81 MG PO; +FLORAJEN3 CAPS460 MG PO; +IPRAT-ALBUT 0.5-3 ML INH; +LUMIGAN 0.01%2.5 ML EACH EYE; +Levaquin PO; +METOPROLOL TART50 MG PO
[2016-12-17 09:06] LABS: BASOPHILS 0.4 % (0-2); EOSINOPHILS 1.7 % (0-7); HEMATOCRIT 36.9 % (36.0-48.0); IMMATURE GRANULOCYTES 0.2 % (0-5); LYMPHOCYTES 20.5 % (15-50); MCH 32.3 pg (26.0-34.0); MCHC 32.5 g/dL (31.0-37.0); MCV 99.5 fL (80.0-100.0); MEAN PLATELET VOLUME 10.9 fL (7.4-10.4); NEUTROPHILS 67.2 % (40-80); RBC 3.71 10x6/uL (4.00-5.40); RDW 14.5 % (11.5-14.5); WBC 4.7 10x3/uL (4.8-10.8)
[2016-12-17 09:07] LABS: PLATELET COUNT 135 10x3/uL (130-400)
[2016-12-17 09:24] LABS: ALBUMIN 2.4 g/dL (3.4-5.0); ANION GAP 13.2 mmol/L (8-16); BILIRUBIN - TOTAL 0.49 mg/dL (0.2-1.3); CALCIUM 8.3 mg/dL (8.5-10.1); CARBON DIOXIDE 27.1 mmol/L (21.0-32.0); POTASSIUM - SERUM 3.3 mmol/L (3.5-5.1); PROTEIN - SERUM 6.4 g/dL (6.4-8.2)
[2016-12-17 09:33] LABS: TROPONIN-I 0.046 ng/mL (0.000-0.060)
[2016-12-17 09:43] LABS: APPEARANCE CLOUDY (CLEAR); BACTERIA MODERATE /hpf (NONE SEEN); BILIRUBIN NEGATIVE (NEGATIVE); COLOR YELLOW (YELLOW); EPITHELIAL CELLS NSEEN /hpf (0-5); GLUCOSE NEGATIVE (NEGATIVE); GRANULAR CAST NONE SEEN /lpf (NONE SEEN); HYALINE CAST NONE SEEN /lpf (NONE SEEN); KETONE NEGATIVE (NEGATIVE); LEUKOCYTE ESTERASE 2+ (NEGATIVE); MUCUS NONE SEEN /lpf (NONE SEEN); NITRITE POSITIVE (NEGATIVE); PROTEIN 1+ mg/dL (NEGATIVE); RED CELLS - URINE 0-5 /hpf (0-5); SPECIFIC GRAVITY 1.015 (1.005-1.020); UROBILINOGEN NORMAL (NORMAL); YEAST NONE SEEN /hpf (NONE SEEN)
--- NOTE | 2016-12-17 12:19 | NUR ---
1210-PT ARRIVED TO ROOM VIA STRETCHER. PT IS CONFUSED. O2 SL VIA NC. LEFT HIP WITH ABBRASION FROM DIAPER? LEFT LOWER LEG SWOLLEN WITH 3 SORES TO BACK OF LEG. B/P 191/69, TEMP 97.4 (ORAL), RESP 15, PULSE 55, O2 98% ON SL O2. SL TO RIGHT FA, 20G. BED ALARM ON, DAUGHTER AT BEDSIDE. WILL ADMIT
--- NOTE | 2016-12-17 13:09 | NUR ---
DR YODER HERE TO SEE PATIENT. SHE SIGNED A DNR CODE STATUS THAT WAS IN THE BACK OF THE CHART. [facility] CALLED FOR THEM TO FAX A COPY OF HER MEIDCATIONS AND THE TIME THEY WERE TAKEN.
--- NOTE | 2016-12-17 13:36 | NUR ---
CALLED [facility] / [facility] AGAIN FOR FAXED COPY OF MEDICATION LIST, TALKED TO KRISTOPHER AT THE FACILITY.
[2016-12-17] MEDS ORDERED: MULTIPLE VITAMI1 TA1 PO ×2 (14:01→14:02)
[2016-12-17] MEDS ORDERED: CEFTRIAXONE1 G/VIAL IM (14:02)
[2016-12-17] MEDS ORDERED: IPRAT-ALBUT 0.5-3 ML UPD (14:03)
[2016-12-17 14:13] VITALS: BP 191/69
[2016-12-17 14:21] LABS: BASOPHILS 0.4 % (0-2); EOSINOPHILS 1.1 % (0-7); HEMATOCRIT 36.2 % (36.0-48.0); HEMOGLOBIN 11.9 g/dL (12-16); IMMATURE GRANULOCYTES 0.2 % (0-5); LYMPHOCYTES 21.7 % (15-50); MCH 33.1 pg (26.0-34.0); MCHC 32.9 g/dL (31.0-37.0); MCV 100.6 fL (80.0-100.0); MEAN PLATELET VOLUME 10.8 fL (7.4-10.4); MONOCYTES 10.9 % (2-11); NEUTROPHILS 65.7 % (40-80); PLATELET COUNT 129 10x3/uL (130-400); RDW 14.6 % (11.5-14.5); WBC 5.5 10x3/uL (4.8-10.8)
[2016-12-17 14:38] LABS: ANION GAP 13.6 mmol/L (8-16); CALCIUM 8.2 mg/dL (8.5-10.1); CARBON DIOXIDE 27.3 mmol/L (21.0-32.0)
[2016-12-17 14:55] LABS: POTASSIUM - SERUM 2.9 mmol/L (3.5-5.1)
--- NOTE | 2016-12-17 15:22 | NUR ---
CALLED DR. GRAFF ABOUT CRITICAL LAB. PROVIDED NEW ORDERS.
[2016-12-17 15:48] VITALS: BP 142/74
--- NOTE | 2016-12-17 17:16 | NUR ---
DAUGHTER, RENITA BROOKS. COPIED AND PLACED IN CHART.
--- NOTE | 2016-12-17 18:02 | NUR ---
1800-PER KITCHEN STEWARDESS, PATIENT CONVERTED TO SR, HR 73. UPON ADMIT WHEN MONITOR PLACED, CAF, HR 86.
[2016-12-17 19:32] VITALS: BP 142/70
--- NOTE | 2016-12-17 22:39 | NUR ---
INIITAL ROUNDS COMPLETED AT 1914 HRS. PT RESTING WITH EYES CLOSED. RESP EVEN AND REGULAR. PT INCONTINENT OF URINE AT 1944 HRS. INCONTINENT CARE DONE. ASSESSMENT COMPLETED AT THAT TIME. IV TO RFA WITHNS AT 30CC/HR. O2 2LNC. SR PER CM HR 74. PT CONFUSED AT TIMES. FOLLOWS COMMANDS. WEAK HAND AND FOOT STENGTH BILAT. ABRASION TO L HIP APPROX 2.5X10CM. LOWER R LEG RED, WITH 1+ PITTING EDEMA AND WARM TO TOUCH. 3 SMALL SORES NOTED TO INNER ASPECT OF R ANKLE. LUNGS DIMINISHED INBASES BILAT. PT STATES HAS CP WITH COUGH. KCL 20 MEQ IN OJ GIVEN PER S/S. PT ABLE TO TAKE SMALL SIPS WITH HOB UP [address] DE[address]. PT BACK FORM CT AT 2154 HRS. PT CURRENTLY RESTING WITH EYES CLOSED. RESP EVEN AND REGULAR. SR UP X2, CALL LIGHT WITHIN REACH AND BED ALARM ON.
[2016-12-17 23:23] VITALS: BP 132/64
--- NOTE | 2016-12-18 00:08 | NUR ---
PT INCONTINENT OF URINE. INCONTINENT CARE DONE. REPOSITIONED IN BED FOR COMFORT. WILL CONTINUE TO MONITOR. SR UP X2, CALL LIGHT WITHIN REACH AND BED ALARM ON.
--- NOTE | 2016-12-18 02:11 | NUR ---
PT RESTING WITH EYES CLOSED. RESP EVEN AND REGULAR. SR UP X2,CALL LIGHT WITHIN REACH.
[2016-12-18 03:41] VITALS: BP 130/66
--- NOTE | 2016-12-18 04:35 | NUR ---
PT INCONTINENT OF URINE. INCONTINENT CARE DONE. PT REPOSITIONED IN BED FOR COMFORT. SORES X3 TO INNER R ANKLE AREA OOZING SEROUS FLUID. LOOSE DRESSING APPLIED. WILL CONTINUE TO MONITOR. DAUGHTER AT BEDSIDE.
[2016-12-18 06:08] LABS: BASOPHILS 0.4 % (0-2); EOSINOPHILS 0.6 % (0-7); HEMATOCRIT 33.9 % (36.0-48.0); MCH 32.8 pg (26.0-34.0); MCHC 32.4 g/dL (31.0-37.0); MCV 101.2 fL (80.0-100.0); MEAN PLATELET VOLUME 11.2 fL (7.4-10.4); MONOCYTES 10.8 % (2-11); NEUTROPHILS 74.2 % (40-80); PLATELET COUNT 130 10x3/uL (130-400); RBC 3.35 10x6/uL (4.00-5.40); WBC 5.3 10x3/uL (4.8-10.8)
--- NOTE | 2016-12-18 06:10 | NUR ---
VSS THROUGHOUT NIGHT. SR PER CM. PT DENIED ANY DISCOMFORT. TURNED FREQ DURING SHIFT. NEEDS MET; WILL CONTINUE TO MONITOR.
[2016-12-18 06:57] LABS: ANION GAP 12.8 mmol/L (8-16); CARBON DIOXIDE 25.3 mmol/L (21.0-32.0); MAGNESIUM - SERUM 1.6 mg/dL (1.8-2.4); POTASSIUM - SERUM 4.1 mmol/L (3.5-5.1)
[2016-12-18 07:44] VITALS: BP 142/72
[2016-12-18] MEDS ORDERED: LEVAQUIN500 MG PO (07:53)
--- NOTE | 2016-12-18 10:18 | NUR ---
PT HAS A R.CALF DRSG SOILED. APPEARS TO BE WEEPING EDEMA. CLEANSED SITE AND DRSD WITH NONADHERENT DRSG AND WRAPPED WITH KERLIX. PT INCONTINENT OF URINE, COMPLETED BED CHANGE DONE. PT ALERT AND ORIENTED RESTING QUIETLY WITH DAUGHTER AT BEDSIDE. RR NONLABORED WITH NC @2L IN PLACE. CL IN REACH. WILL CPOC.
[2016-12-18 12:19] VITALS: BP 135/63
[2016-12-18 12:20] VITALS: Ht 162.6 cm; Wt 59.9 kg
--- NOTE | 2016-12-18 12:59 | NUR ---
INITIATED IVPB LEVAQUIN TO BE INFUSED OVER AN HOUR AND A HALF. PT RESTING QUIETLY IN BED. INCONTINENT OF URINE AND SHEETS SOILED. CHANGED OUT LINENS AND REPOSITIONED PT UP IN BED. DAUGHTER AT BEDSIDE. PT DENIES ANY FURTHER NEEDS AT THIS TIME. WILL CPOC.
[2016-12-18 15:51] VITALS: BP 149/79
--- NOTE | 2016-12-18 17:07 | NUR ---
Patient Name: JANETTE DE LA VEGA Admission Status: ER Accout number: [id number] Admission Date: 12-17-2016 : 1930 Admission Diagnosis: Attending: TAMMY Current LOS: 1 Anticipated DC Date: 12-18-2016 Planned Disposition: Hospice Medical Facility Primary Insurance: MEDICARE A & B PLANNED EXTERNAL PROVIDER: [facility] Discharge Planning Comments: * Is the patient Alert and Oriented? Yes 0 * How many steps to enter\exit or inside your home? NONE 0 * PCP DR QUIROZ 0 * Pharmacy [facility] 0 * Preadmission Environment Intermediate Facility 0 * Facility Name [facility] * ADLs Partial Dependent 0 * Partial ADLs (Assistance needed) Ambulation Bathing Dressing Medication Management Toileting Transfers 0 * Equipment Other 0 * Other Equipment ALL MEDICAL EQUIPMENT PROVIDED BY [facility] FACILITY 0 * List name and contact numbers for known caregivers / representatives who currently or will assist patient after discharge: HERMAN DE LA VEGA, DAUGHTER / POA, 0 * Community resources currently utilized None 0 * Please name any agencies selected above. NONE 0 * Additional services required to return to the preadmission environment? No 0 * Can the patient safely return to the preadmission environment? Yes 0 * Has this patient been hospitalized within the prior 30 days at any hospital? Yes [address] BRIGHT AND BREEZY SAAVEDRA, RECEIVED HOSPICE CONSULT ORDER. CM MET WITH PT AND TWO DAUGHTERS IN ROOM, DISCUSSED HOSPICE ORDER, HOSPICE OPTIONS AND HOSPICE PROVIDERS. CM PROVIDED HOSPICE INFORMATION. PT WOULD LIKE HOSPICE CARE. PT'S DAUGHTERS IN AGREEMENT, WOULD LIKE HOSPICE EVALUATION BY [facility]. IMPORTANT MESSAGE FROM MEDICARE PROVIDED AND DISCUSSED. CM CONTACTED LAMONTE LIU OF [facility] WHO REPORTED THAT SHE WILL BE TO THE HOSPITAL SOON POSSIBLE FOR EVALUATION. CM FAXED REFERRAL TO [facility], . PT AND FAMILY NOTIFIED. BEDSIDE NURSE NOTIFIED. CM WAITING RESULTS OF [facility] EVALUATION FOR POSSIBLE HOSPICE ADMISSION TODAY. Parole Board Member: Truong Mehta
[2016-12-18 19:49] VITALS: BP 140/69
--- NOTE | 2016-12-18 23:46 | NUR ---
NURSE ROUNDS 21:45 - PT LYING IN BED, EYES CLOSED, RESPIRATIONS EVEN AND UNLABORED. DAUGHTER AT BEDSIDE. PT IS UNRESPONSIVE AT THIS TIME, BUT WHEN TRYING TO ADMINISTER PTS EYE DROPS, SHE DID CLENCH HER EYE LIDS, NOT ALLOWING ME TO ADMINISTER THE RX. PT WILL OPEN HER EYES TO GENTLE TOUCH/RUBBING, HOWEVER WILL NOT RESPOND VERBALLY. PTS DAUGHTER STATES SHE HAS BEEN THIS WAY SINCE 17:00 AFTER HER PRN MORPHINE. PTS DAUGHTER ALSO STATES THIS IS THE FIRST TIME PT HAS BEEN WITHOUT PAIN. PT IS IN NO CLEAR DISTRESS, WILL CONTINUE TO MONITOR CLOSELY. PT HAS BEEN CHANGED X 1 FOR BLADDER INCONTINENCE, PILLOW PLACED UNDER LEFT HIP. BED LOW, DAUGHTER AT BEDSIDE, PT UNABLE TO USE CALL LIGHT, SIDE RAILS X 3. THERE IS 3+ RLE WEEPING EDEMA WITH A DRESSING INTACT. WILL CHANGE PRN.
[2016-12-18 23:50] VITALS: BP 133/50
--- NOTE | 2016-12-19 03:19 | NUR ---
PT IS STARTING TO ROUSE, EYES OPEN, DID EAT ALMOST A FULL CONTAINER OF CHOCOLATE PUDDING. I REMOVED PTS LOWER DENTURES, THEY HAD FALLEN OUT OF PLACE AND TO THE BACK OF HER THROAT. PT IS NOW ANSWERING SIMPLE QUESTIONS FROM HER DAUGHTER AT BEDSIDE. DUE TO PTS WET COUGH, I HAVE ADDED SUCTION TO AID WITH SECRETIONS. WILL CONTINUE TO MONITOR CLOSELY.
[2016-12-19 03:39] VITALS: BP 119/69
[2016-12-19 05:34] LABS: BASOPHILS 0.1 % (0-2); EOSINOPHILS 0.1 % (0-7); HEMATOCRIT 33.1 % (36.0-48.0); HEMOGLOBIN 11.1 g/dL (12-16); IMMATURE GRANULOCYTES 0.2 % (0-5); MCHC 33.5 g/dL (31.0-37.0); MCV 101.5 fL (80.0-100.0); MEAN PLATELET VOLUME 11.4 fL (7.4-10.4); MONOCYTES 6.4 % (2-11); NEUTROPHILS 86.2 % (40-80); PLATELET COUNT 117 10x3/uL (130-400); RBC 3.26 10x6/uL (4.00-5.40); RDW 15.1 % (11.5-14.5)
[2016-12-19 06:09] LABS: WBC 9.4 10x3/uL (4.8-10.8)
[2016-12-19 06:16] LABS: ANION GAP 13.5 mmol/L (8-16); CALCIUM 7.8 mg/dL (8.5-10.1); CARBON DIOXIDE 25.1 mmol/L (21.0-32.0); CREATININE - SERUM 1.1 mg/dL (0.6-1.3); MAGNESIUM - SERUM 1.2 mg/dL (1.8-2.4); POTASSIUM - SERUM 3.6 mmol/L (3.5-5.1)
--- NOTE | 2016-12-19 07:20 | NUR ---
RECEIVED REPORT. ASSUMED CARE OF PATIENT. PATIENT RESTING IN BED WITH EYES CLOSED. EASILY AROUSED. PATIENTS DAUGHTER AT BEDSIDE. FAMILY REPORTS SHE ATTEMPTED TO TRY AND GIVE PATIENT SOMETHING TO DRINK AND SHE HELD IT IN HER MOUTH. NIGHT NURSE REPORTED THAT PATIENT UNABLE TO SWALLOW. DENIES NEEDS AT THSI TIME. CALL LIGHT WITHIN REACH.
[2016-12-19 07:58] VITALS: BP 142/64
--- NOTE | 2016-12-19 09:23 | NUR ---
Patient Name: JANETTE DE LA VEGA Encounter No: [id number] : 1930 Primary Insurance: MEDICARE A & B Anticipated DC Date: 12-19-2016 Planned Disposition: Nursing Facility JOHNY Cert External Planned Provider: [facility], TEST CASE DEVELOPER CARE MEDICAID BED DCP follow-up note: CM RECEIVED MESSAGE FROM LAMONTE LIU OF [facility] WHO REPORTED THAT PT DID NOT MEET INPATIENT HOSPICE CRITERIA, THE [facility] WILL BE WORKING WITH PT AND FAMILY TODAY TO WORK OUT PLACEMENT AND DISCHARGE ARRANGEMENTS. CM WAITING PLACEMENT / HOSPICE ARRANGEMENTS TO BE COMPLETED BY FAMILY AND [facility]. Turong Mehta, CASE MANAGEMENT
--- NOTE | 2016-12-19 09:30 | NUR ---
PO MEDS HELD DUE TO UNSAFE TO ADMINISTER. PATIENTS DAUGHTER AT BEDSIDE. PER FAMILY, REQUEST SENT FOR PT TO REMOVE TRAPEEZE BAR FROM BED. TEACHING PROVIDED IN REGARDS TO MEDICATIONS THAT ARE BEING ADMINISTERED. INFORMED PATIENTS DAUGHTER THAT CM FROM HOSPICE WOULD BE HERE TODAY TO SPEAK WITH THEM.
--- NOTE | 2016-12-19 11:58 | NUR ---
MEDICATED FOR PAIN AT THIS TIME. NO DISTRESS.
[2016-12-19 15:58] VITALS: BP 144/71
--- NOTE | 2016-12-19 16:53 | NUR ---
Patient Name: JANETTE DE LA VEGA Encounter No: [id number] : 1930 Primary Insurance: MEDICARE A & B Anticipated DC Date: 12-19-2016 Planned Disposition: Nursing Facility JOHNY Cert External Planned Provider: [facility], LOCAL HAZMAT DRIVER CARE MEDICAID BED DCP follow-up note: CM SPOKE TO SANJANA ASHLEY, [employer]ICE PRESIDENT [employer]ENDING FOR [facility]; SHE HAS MET WITH PT AND FAMILY THIS MORNING, FAMILY WILL HAVE TO WORK OUT PRIVATE PAY ARRANGEMENTS WITH FACILITY FOR PT'S RETURN PT HAS TOO MUCH IN ASSETS TO QUALIFY FOR MEDICAID AT THIS TIME. CM WAITING PLACEMENT / HOSPICE ARRANGEMENTS TO BE COMPLETED BY FAMILY AND [facility]. Truong Mehta, CASE MANAGEMENT
--- NOTE | 2016-12-19 18:39 | NUR ---
MEDICATED FOR PAIN AT THIS TIME. PATIENTS DAUGHTER AT BEDSIDE.
--- NOTE | 2016-12-19 19:27 | NUR ---
REPORT GIVEN TO ONCOMING NURSE. PASSED ON TO ONCOMING NURSE THAT PATIENT DRESSING TO RIGHT LOWER LEG WOULD NEED TO BE CHANGED. FAMILY REMAINS AT BEDSIDE. NO DISTRESS. CALL LIGHT WITHIN REACH.
--- NOTE | 2016-12-19 19:30 | NUR ---
ASSESSMENT DONE. LAYING IN BED WITH EYES CLOSED, RESP UNLABORED. HOB ELEVATED. PT APPREARS COMFORTABLE. O2 AT 2L VIA NC. NO DISTRESS NOTED. DRESSING CHANGED TO PT'S RIGHT LOWER LEG. TOLERATED WELL. PT'S DAUGHTER IN ROOM. WILL CONT. TO MONITOR.
[2016-12-19 20:44] VITALS: BP 111/52
[2016-12-19 23:58] VITALS: BP 147/67
--- NOTE | 2016-12-20 00:06 | NUR ---
PT SLEEPING. APPEARS COMFORTABLE. NO DISTRESS NOTED. PT CHECKED FOR INCONTINENCE AND REPOSITIONED. DAUGHTER AT BEDSIDE. SIDE RAILS UP X2. BED ALARM ON. CALL LIGHT WITH IN REACH. WILL CONT. TO MONITOR.
--- NOTE | 2016-12-20 02:24 | NUR ---
PT RESTING. APPEARS COMFORTABLE. NO DISTRESS NOTED. DAUGHTER AT BEDSIDE. PT CHECKED FOR INCONTINENCE AND REPOSITIONED. WILL CONT. TO MONITOR.
[2016-12-20 03:55] VITALS: BP 118/73
--- NOTE | 2016-12-20 05:33 | NUR ---
PT SLEEPING. NO DISTRESS NOTED. APPEARS COMFORTABLE. DAUGHTER AT BEDSIDE. CHECKED FOR INCONTINENCE AND REPOSITIONED. CALL LIGHT WITH IN REACH. WILL CONT. TO MONITOR.
[2016-12-20 06:31] LABS: ANION GAP 10.9 mmol/L (8-16); CARBON DIOXIDE 25.7 mmol/L (21.0-32.0); MAGNESIUM - SERUM 1.5 mg/dL (1.8-2.4); POTASSIUM - SERUM 3.6 mmol/L (3.5-5.1)
[2016-12-20 06:48] LABS: BASOPHILS 0.1 % (0-2); EOSINOPHILS 0.3 % (0-7); IMMATURE GRANULOCYTES 0.3 % (0-5); LYMPHOCYTES 9.3 % (15-50); MCH 32.6 pg (26.0-34.0); MCHC 32.3 g/dL (31.0-37.0); MEAN PLATELET VOLUME 11.1 fL (7.4-10.4); MONOCYTES 6.6 % (2-11); NEUTROPHILS 83.4 % (40-80); PLATELET COUNT 93 10x3/uL (130-400); RBC 3.07 10x6/uL (4.00-5.40); RDW 15.2 % (11.5-14.5); WBC 7.6 10x3/uL (4.8-10.8)
--- NOTE | 2016-12-20 07:07 | NUR ---
PT SLEEPING LOOKS COMFORTABLE NO S/S DISTRESS NOTED. DAUGHTER AT BEDSIDE DENIES NEEDS WILL CONT TO MONITOR
[2016-12-20 07:26] LABS: PLATELET ESTIMATE DECREASED
[2016-12-20 07:38] VITALS: BP 127/91
--- NOTE | 2016-12-20 09:25 | NUR ---
PT DAUGHTER AT BEDSIDE. ASKING ABOUT STAFF CHECKING PT FOR INC OR URINE AND A BATH. I MYSELF CHECKED PT DURING MED PASS, SHE WAS DRY. CHECKED AGAIN WHILE I WAS IN PT ROOM TO APPEASE FAMILY, ALSO DRY. I ASKED PT DAUGHTER IF PT HAD A BATH LAST NIGHT AND SHE SAID NO. PHI ROSARIO TODAY SAID THAT KAYLYNN MARLENE LAST NIGHT GAVE HER A BATH. PT DAUGHTER STILL DENYING PT BATH LAST NIGHT. PHI AND I WILL BATHE PT TODAY. PT WAS PLACED IN ISOLATION FOR ECOLI IN URINE. EXPLAINED TO PT DAUGHTER AND GAVE HER GOWN AND GLOVES. PT DAUGHTER CONCERNED ABOUT PT NOT EATING. WHEN ASKED IF THE PT IS HUNGRY PT REPLIES "NO". PT WAS SUPPOSED TO BE PLACED ON HOSPICE BUT DID NOT QUALIFY FOR INPATIENT. I TOLD PT DAUGHTER THAT DUE TO PT SPITTING HER FOOD BACK UP WE WILL HAVE TO CONTINUE TO SUCTION AND SUCTION HER MUCOUS OUT THAT IS BOTHERING HER. PT DAUGHTER SAID THAT THE PT DOES NOT WANT THAT ANYMORE. STILL CONCERNED ABOUT PT NOT EATING. TOLD PT DAUGHTER THAT I WILL TALK TO DR LEE AND MATT ARCHULETA WHEN THEY ROUND. PT DAUGHTER SAID THAT SHE DOES NOT WANT A TUBE FEEDING PLACEMENT FOR HER MOTHER.
--- NOTE | 2016-12-20 09:47 | NUR ---
PT GIVEN COMPLETE BED BATH AND LINEN CHANGE. PT ALSO CLEANED UP FOR URINE INC AT THIS TIME.
[2016-12-20 12:16] VITALS: BP 168/74
--- NOTE | 2016-12-20 13:36 | NUR ---
Patient Name: JANETTE DE LA VEGA Encounter No: [id number] : 1930 Primary Insurance: MEDICARE A & B Anticipated DC Date: 12-19-2016 Planned Disposition: Nursing Facility JOHNY Cert External Planned Provider: [facility] PRESENTATION SPECIALIST CARE PRIVATE PAY BED DCP follow-up note: CM MET WITH PT'S DAUGHTER IN PT'S ROOM. PT'S DAUGHTER REPORTS THEY ARE ACTIVELY WORKING WITH [employer] WORKING TO FIND PLACEMENT FOR PT IN A PRIVATE SENIOR LIVING, POSSIBLY IN [place] OR RETURNING PT TO [facility] FOR HOSPICE CARE THERE. PT'S DAUGHTER HAD PATIENT CARE COMPLAINTS, CM NOTIFIED RN COOKER SYRUP KERI. CM CALLED [facility], , SPOKE TO NNEKA AND PROVIDED UPDATE. CM FAXED UPDATE TO [facility] AT [phone]. CM WAITING PLACEMENT / HOSPICE ARRANGEMENTS TO BE COMPLETED BY FAMILY AND [facility]. Truong Mehta, CASE MANAGEMENT
--- NOTE | 2016-12-20 14:01 | NUR ---
Nutrition Follow Up: Chart reviewed. Noted pt to likely become hospice care. Pt is eating 21% meal avg on a low Na puree diet. Per nursing note pt's daughter does not want pt to have PEG placement. Labs reviewed. Meds noted including Lasix. Will change diet to regular puree to encourage po intake. Will continue to send Mighty Shakes with meals. RD following.
--- NOTE | 2016-12-20 14:23 | NUR ---
DR GRAFF HERE TO SEE PT. ASKED TO SEE PT WOUND ON R LEG, REMOVED DRESSING. WOUND LOOKS LIKE A SMALL PINK SCAR NO DRAINAGE OR OPEN WOUND NOTED. CLEAN AND DRY AND INTACT. REPLACED DRESSING WITH NONADHERENT GAUZE AND 4X4 AND CURLEX PER PT DAUGHTER REQUEST FOR IT TO BE COVERED. SIGNED AND DATED. ORDERED FIRST STEP OVERLAY PER DR GRAFF CALLED [facility] SPOKE WITH [facility] AND ALSO FAXED ORDER DOWN TO [facility] FOR THEM TO BRING UP MATTRESS. ORDERED SPEECH DAMARIS CHAIDEZ AWARE. DAUGHTER AT BEDSIDE WITH PT HOLDING PT HAND. PT ASLEEP NO S/S DISTRESS NOTED WILL CONT TO MONITOR
--- NOTE | 2016-12-20 16:19 | NUR ---
PT PIV IN R HAND INFILTRATED DC WITH CATH TIP INTACT. RESITED TO R FA 22G X1 STICK PATENT
[2016-12-20 16:24] VITALS: BP 130/49
[2016-12-20 19:00] VITALS: BP 147/71
[2016-12-21] VITALS: BP 145/85
[2016-12-21 04:00] VITALS: BP 158/71
[2016-12-21 06:48] LABS: BASOPHILS 0.2 % (0-2); EOSINOPHILS 2.5 % (0-7); HEMATOCRIT 31.1 % (36.0-48.0); HEMOGLOBIN 10.1 g/dL (12-16); IMMATURE GRANULOCYTES 0.2 % (0-5); LYMPHOCYTES 11.3 % (15-50); MCH 32.9 pg (26.0-34.0); MCHC 32.5 g/dL (31.0-37.0); MCV 101.3 fL (80.0-100.0); MEAN PLATELET VOLUME 10.4 fL (7.4-10.4); MONOCYTES 5.3 % (2-11); NEUTROPHILS 80.5 % (40-80); PLATELET COUNT 101 10x3/uL (130-400); RBC 3.07 10x6/uL (4.00-5.40)
[2016-12-21 06:53] LABS: WBC 5.3 10x3/uL (4.8-10.8)
[2016-12-21 07:04] LABS: ANION GAP 10.3 mmol/L (8-16); CALCIUM 7.9 mg/dL (8.5-10.1); CREATININE - SERUM 0.9 mg/dL (0.6-1.3); PHOSPHOROUS 2.9 mg/dL (2.5-4.9); POTASSIUM - SERUM 3.3 mmol/L (3.5-5.1)
[2016-12-21 07:35] VITALS: BP 156/69
--- NOTE | 2016-12-21 11:04 | NUR ---
AM ROUNDS - PT APPEARS TO BE SLEEPING IN BED ON BACK WITH EQUAL AND NON LABORED BREATHING. DAUGHTER AT BEDSIDE. 2L O2 VIA NC. 20CC/HR, NS, RIGHT FA. PT IS INCONTINENT OF STOOL AND URINE. PT ON A 1ST STEP OVERLAY. MONITOR SHOWING SB, HR 57. WILL CONTINUE TO MONITOR
[2016-12-21 11:52] VITALS: BP 186/76
--- NOTE | 2016-12-21 12:49 | NUR ---
Patient Name: JANETTE DE LA VEGA Encounter No: [id number] : 1930 Primary Insurance: MEDICARE A & B Anticipated DC Date: 12-19-2016 Planned Disposition: Nursing Facility JOHNY Cert External Planned Provider: [facility], RETIREMENT CARE PRIVATE PAY BED DCP follow-up note: CM RECEIVED CALL FROM PRABHAKAR OF [facility] WHO INFORMED CM THAT PT'S FAMILY HAD MET WITH [facility] A COUPLE OF WEEKS AGO WHICH MAY BE ABLE TO PROVIDE PT'S FAMILY THE COMMUNITY HOME THEY DESIRE FOR HOSPICE CARE IF FAMILY DOES NOT WANT TO RETURN TO [facility]. FAMILY NOT IN ROOM. CM CALLED HOME PHONE, , SPOKE TO URIEL, PT'S DAUGHTER WHO REPORTS SHE IS WORKING WITH [employer] FOR POSSIBLE RETURN OF PT TODAY TO [place] BUT IS STILL INTERESTED IN A PRIVATE HOSPICE HOME; CM DISCUSSED OTHER HOSPICE AGENCIES. RUIEL REPORTS THEY HAVE MET WITH [facility] A WEEK AGO SUNDAY AND SHE WOULD LIKE FOR CM TO SEND THEM INFORMATION AND HAVE THEM CALL HER ON HER CELL PHONE, . URIEL ASKED CM TO CALL [facility] AND HAVE SHANT CALL HER ON HER CELL PHONE ALSO. CM CALLED [facility], , SPOKE TO LELAND, PROVIDED REFERRAL AND REQUEST TO CALL FAMILY NOW; CM NOTIFIED LELAND THAT PT IS READY FOR DISCHARGE TODAY. LELAND WILL CONTACT URIEL. CM FAXED REFERRAL TO [facility] AT [phone]. CM CALLED [facility], , SPOKE TO SHANT, WHO IS WORKING WITH FAMILY AND [facility] FOR PLACEMENT TODAY. SHANT WILL CALL FAMILY AND NOTIFY CM IF AND WHEN ARRANGEMENTS ARE COMPLETED WITH FAMILY AND FACILITY. CM WAITING COMPLETION HOSPICE ARRANGEMENTS AND PLACEMENT ON PRIVATE PAY BASIS BY FAMILY. Truong Mehta, CASE MANAGEMENT
--- NOTE | 2016-12-21 14:07 | NUR ---
Patient Name: JANETTE DE LA VEGA Encounter No: [id number] : 1930 Primary Insurance: MEDICARE A & B Anticipated DC Date: 12-19-2016 Planned Disposition: Nursing Facility JOHNY Cert External Planned Provider: [facility], CHILD AND FAMILY THERAPIST CARE PRIVATE PAY BED DCP follow-up note: CM RECEIVED CALL FROM [facility], , SPOKE TO LELAND WHO ADVISED THAT ALL ARRANGEMENTS HAVE BEEN MADE WITH [facility] FOR PT TO RETURN TODAY BY FAMILY, HOSPICE TO ADMIT PT AFTER PT'S ARRIVAL TO [facility], THEY WILL EVENTUALLY TRANSITION TO COMMUNITY HOME WHEN LOCATED. CM CALLED DR. GRAFF, NOTIFIED OF ARRANGEMENTS, WILL BE TO HOSPITAL TO DISCHARGE PT AFTER 5PM TODAY. CM SPOKE TO PT'S DAUGHTER, HERMAN DE LA VEGA, IN ROOM. DAUGHTER/POA IN AGREEMENT WITH DISCHARGE PLAN FOR THIS EVENING, IMPORTANT MESSAGE FROM MEDICARE PROVIDED AND EXPLAINED. FOR DISCHARGE, FAX DISCHARGE INFORMATION TO [facility], ; NURSE REPORT TO BE [facility], . PT TO TRANSPORT VIA AMBULANCE. NOTIFY [facility] AT [phone]. Truong Mehta, CASE MANAGEMENT
[2016-12-21] MEDS ORDERED: POTASSIUM CHLO10 ME1 PO (15:56)
[2016-12-21] MEDS ORDERED: CEFTRIAXONE1 G/VIAL IM (15:57)
[2016-12-21] MEDS ORDERED: FUROSEMIDE20 MG PO (16:05)
[2016-12-21 16:42] VITALS: BP 184/86
--- NOTE | 2016-12-21 16:59 | NUR ---
Patient Name: JANETTE DE LA VEGA Encounter No: [id number] : 1930 Primary Insurance: MEDICARE A & B Anticipated DC Date: 12-21-2016 Planned Disposition: Nursing Facility JOHNY Cert External [facility], OUTSOLE CUTTER MACHINE CARE PRIVATE PAY BED. DCP follow-up note: CM [facility]ED DISCHAR[facility] INFORMATION TO [facility], AND [facility] AT [phone]. NURSE REPORT TO BE CALLED TO [facility] AND [facility], . PT TO TRANSPORT VIA AMBULANCE. NOTIFY HOSPICE [facility] AT [phone] WHEN PT LEAVES HOSPITAL. Truong Mehta, CASE MANAGEMENT
--- NOTE | 2016-12-21 17:31 | NUR ---
PT BEING D/C TO [facility]. REPORT CALLED TO SAROJ AT [facility] CALLED TO TRANSPORT IV IN RIGHT ARM D/C. CATH TIP INTACT. PT TOLERATED WELL. COMMERCIAL INTER[employer] D/C. D/C INSTRUCTION GIVEN TO DAUGHTERS WELL
--- NOTE | 2016-12-21 18:21 | NUR ---
CALLED [facility] FOR TRANSPORT, AGAIN. DISPATCH SAID ABOTU 45MIN.
--- NOTE | 2016-12-21 19:34 | NUR ---
Called [facility] at 1930 they said they were in [place] and would be here shortly.
--- NOTE | 2016-12-21 19:53 | NUR ---
Patient resting in her room, awaiting transportation to [facility], bed in low locked position, call light and bedside table in reach,
--- NOTE | 2016-12-21 21:56 | NUR ---
Patient discharged to [facility] via ambulance at 2014, call placed to [facility] Nurse that patient was in route, message left with answering service.
== END 2016-12-21 22:15 | disposition home health service (06) | DRG 189 ==
LOC: D.ER 08:31 → D.M2 11:27
PROVIDERS: Family Medicine; Internal Medicine Pulmonary Disease; ADMIT Family Medicine
DX: J96.01 Acute respiratory failure with hypoxia (principal); J18.9 Pneumonia, unspecified organism; J44.0 Chronic obstructive pulmonary disease with (acute) lower respiratory infection; N39.0 Urinary tract infection, site not specified; I13.0 Hypertensive heart and chronic kidney disease with heart failure and stage 1 through stage 4 chronic kidney disease, or unspecified chronic kidney disease; I50.20 Unspecified systolic (congestive) heart failure; N18.9 Chronic kidney disease, unspecified; D64.9 Anemia, unspecified; E87.6 Hypokalemia; K59.00 Constipation, unspecified; F03.90 Unspecified dementia, unspecified severity, without behavioral disturbance, psychotic disturbance, mood disturbance, and anxiety; Z87.01 Personal history of pneumonia (recurrent); I73.9 Peripheral vascular disease, unspecified; G62.9 Polyneuropathy, unspecified

== ENCOUNTER 2016-12-23 07:26 | Emergency (ER) | payer MEDICARE, OTHER ==
[2016-12-18 12:20] VITALS: BMI 22.6
[~2016-12-23 07:26] MED LIST changes: +CEFTRIAXONE1 G/VIAL IM; +FUROSEMIDE20 MG PO; +IPRAT-ALBUT 0.5-3 ML UPD; +LEVAQUIN500 MG PO; +MULTIPLE VITAMI1 TA1 PO; +POTASSIUM CHLO10 ME1 PO
== END 2016-12-23 10:40 | disposition home or self-care (01) ==
LOC: D.ER 07:26
DX: R10.2 Pelvic and perineal pain (principal); R51 Headache; M25.562 Pain in left knee; W06.XXXA Fall from bed, initial encounter; Y93.89 Activity, other specified; Y92.122 Bedroom in nursing home as the place of occurrence of the external cause; F03.90 Unspecified dementia, unspecified severity, without behavioral disturbance, psychotic disturbance, mood disturbance, and anxiety; I10 Essential (primary) hypertension; E78.1 Pure hyperglyceridemia